=== PATIENT | male | born 1940 | race Caucasian/White ===

== ENCOUNTER 2019-08-10 13:46 | Inpatient (IN) | payer MEDICARE, MEDICAID ==
[~2019-08-10] VITALS: Ht 167.6 cm; Wt 72.6 kg
[2019-08-10] MEDS ORDERED: SODIUM CHLORIDE 0.9% 1,000 ML IV ONE (14:14)
[2019-08-10] MEDS ORDERED: LORAZEPAM 2MG/ML CPJ IV ONE (14:15)
[2019-08-10] MEDS ORDERED: LORAZEPAM 2MG/ML CPJ ONE (14:23)
[2019-08-10 14:51] LABS: BG FRACTION INSPIRED OXYGEN 100; BG PCO2 32.4 mmHg (35.0-45.0); BG PH 7.408 (7.350-7.450); BG PO2 357.4 mmHg (75.0-100.0); BG SAMPLE SITE RIGHT BRACHIAL; BG TOTAL HEMOGLOBIN < 4.5 g/dL (12.0-18.0); BG VENT MODE MASK - NRB
[2019-08-10 15:31] LABS: BASOPHILS % 0.1 % (0.0-2.0); MEAN CORPUSCULAR HEMOGLOBIN 39.3 pg (28.0-32.0); MEAN CORPUSCULAR VOLUME 113.2 fL (80.0-94.0); MEAN PLATELET VOLUME 10.6 fl (7.4-10.4); MONOCYTES % 3.3 % (2.0-8.0); NEUTROPHILS % 83.6 % (40.0-76.0); RED BLOOD CELL COUNT 0.78 mill/uL (4.7-6.1); RED CELL DISTRIBUTION WIDTH 26.5 % (11.6-14.6)
[2019-08-10 15:36] LABS: INR 1.1; PROTHROMBIN TIME 11.4 sec (9.6-11.0)
[2019-08-10 15:37] LABS: HEMATOCRIT. 8.8 % (42.0-52.0); HEMOGLOBIN. 3.1 g/dL (14.0-18.0)
[2019-08-10 15:38] LABS: PLATELET 16 x1000/uL (130-400)
[2019-08-10 15:39] LABS: CHLORIDE 117 mEq/L (98-107)
[2019-08-10 15:43] LABS: ETHANOL BLOOD < 10 mg/dL
[2019-08-10 15:47] LABS: VALPROIC ACID <3.0 ug/mL ug/mL (50-100)
[2019-08-10 15:50] LABS: PARTIAL THROMBOPLASTIN TIME < 20.0 sec (23.4-31.0)
[2019-08-10 15:51] LABS: CLARITY URINE CLEAR (CLEAR); COLOR URINE YELLOW (YELLOW); KETONES URINE NEGATIVE (NEGATIVE); LEUKOCYTE ESTERASE URINE NEGATIVE (NEGATIVE); NITRITE URINE NEGATIVE (NEGATIVE); OCCULT BLOOD URINE NEGATIVE (NEGATIVE); PROTEIN URINE NEGATIVE (NEGATIVE); SPECIFIC GRAVITY URINE 1.012 (1.005-1.030)
[2019-08-10 16:00] LABS: CARBAMAZEPINE < 0.5 ug/mL (4-12); PHENOBARBITAL < 2.1 ug/mL (15.0-40.0)
[2019-08-10 16:10] LABS: PLATELET ESTIMATE MARKEDLY DECREASED
[2019-08-10 16:30] LABS: *BARBITURATES SCREEN URINE NEGATIVE (NEGATIVE); *BENZODIAZEPINES SCREEN URINE NEGATIVE (NEGATIVE); *COCAINE SCREEN URINE NEGATIVE (NEGATIVE)
[2019-08-10] MEDS ORDERED: VANCOMYCIN 1 G PREMIX 200 ML IV SCH (16:30)
[2019-08-10] MEDS ORDERED: PIPERACILLIN/TAZ 3.375G PREMIX 50 ML IV ONE (16:30)
[2019-08-10 16:31] LABS: *AMPHETAMINES SCREEN URINE NEGATIVE (NEGATIVE); CANNABINOID URINE SCREEN NEGATIVE (NEGATIVE); METHADONE URINE SCREEN NEGATIVE (NEGATIVE); PHENCYCLIDINE URINE SCREEN NEGATIVE (NEGATIVE)
[2019-08-10 16:32] LABS: OPIATES URINE SCREEN NEGATIVE (NEGATIVE)
[2019-08-10] MEDS ORDERED: ACETAMINOPHEN 650MG SUPP PR PRN (17:30)
[2019-08-10] MEDS ORDERED: DEXTROSE 50% WATER 50ML SYRINGE IV PRN (17:30)
[2019-08-10] MEDS ORDERED: PANTOPRAZOLE SODIUM 40 MG/VIAL IV SCH (17:30)
[2019-08-10] MEDS ORDERED: ONDANSETRON HCL 4MG/2ML INJ IV PRN (17:30)
[2019-08-10] MEDS ORDERED: LORAZEPAM 2MG/ML CPJ IV PRN (17:30)
[2019-08-10] MEDS ORDERED: IPRATROPIUM/ALBUTEROL 0.5-3(2.5)MG/3ML NEB NEB PRN (17:30)
[2019-08-10] MEDS: INSULIN LISPRO 100 UNITS/ML SUBCUT SCH (18:00)
[2019-08-10] MEDS: BLOOD SUGAR DIAGNOSTIC STRIP TEST SCH (18:00)
[2019-08-10] MEDS ORDERED: NOREPINEPHRINE 4 MG in DEXT 5% WATER 246 ML IV STA (19:52)
[2019-08-10] MEDS ORDERED: PIPERACILLIN/TAZOBACTAM 3.375 G in DEXT 5% WATER 100 ML IV SCH (20:00)
[2019-08-10] MEDS ORDERED: VANCOMYCIN 1250MG in DEXTROSE 5% WATER 250ML IV SCH (20:00)
[2019-08-10] MEDS: LEVETIRACETAM 500MG PREMIX 100 ML IV SCH (21:38)
[2019-08-10 21:55] LABS: MEAN CORPUSCULAR HEMOGLOBIN 34.2 pg (28.0-32.0); MEAN CORPUSCULAR VOLUME 96.3 fL (80.0-94.0); RED BLOOD CELL COUNT 1.63 mill/uL (4.7-6.1); RED CELL DISTRIBUTION WIDTH 20.7 % (11.6-14.6)
[2019-08-10 21:58] LABS: CREATINE KINASE MB FRACTION 1.5 ng/mL (0.5-3.6)
[2019-08-10 22:00] LABS: HEMATOCRIT. 15.7 % (42.0-52.0); HEMOGLOBIN. 5.6 g/dL (14.0-18.0); PLATELET 27 x1000/uL (130-400)
[2019-08-10 22:19] LABS: PLATELET ESTIMATE MARKEDLY DECREASED
[2019-08-10] MEDS: PANTOPRAZOLE 80 MG in SODIUM CHLORIDE 0.9% 100 ML IV SCH (22:30)
[2019-08-10] MEDS ORDERED: CEFEPIME 1,000 MG in DEXTROSE 5% WATER 50 ML IV SCH (23:00)
[2019-08-10 23:47] LABS: BG CARBOXYHEMOGLOBIN 0.2 % (0.5-1.5); BG DEOXYHEMOGLOBIN 1.2 % (0.0-5.0); BG FRACTION INSPIRED OXYGEN 100; BG HCO3 ACT 24.8 mmol/L (22.0-26.0); BG METHEMOGLOBIN 0.5 % (0.0-1.5); BG OXYGEN SATURATION 98.8 % (92.0-98.5); BG OXYHEMOGLOBIN 98.1 % (94.0-97.0); BG PCO2 40.8 mmHg (35.0-45.0); BG PH 7.401 (7.350-7.450); BG PO2 281.6 mmHg (75.0-100.0); BG SAMPLE SITE RIGHT RADIAL; BG TOTAL HEMOGLOBIN 5.8 g/dL (12.0-18.0); BG VENT MODE VAPOTHERM
[2019-08-11] VITALS (58 sets, daily range): BP systolic 89–134; BP diastolic 41–85
[2019-08-11] MEDS: MORPHINE SULFATE 2 MG/ML CPJ (NOT FOR IM USE) IV PRN (00:03)
[2019-08-11] MEDS: BLOOD SUGAR DIAGNOSTIC STRIP TEST SCH ×4 (00:07→18:08)
[2019-08-11] MEDS ORDERED: PHENYLEPHRINE 10 MG in DEXTROSE 5% WATER 250 ML IV PRN (01:00)
[2019-08-11] MEDS: IPRATROPIUM/ALBUTEROL 0.5-3(2.5)MG/3ML NEB NEB SCH ×2 (02:27→20:02)
[2019-08-11] MEDS ORDERED: ETOMIDATE 2MG/ML 10ML VIAL IV ONE (05:30)
[2019-08-11] MEDS ORDERED: SUCCINYLCHOLINE CHLORIDE 200MG/10ML IV ONE (05:30)
[2019-08-11] MEDS ORDERED: PROPOFOL 10MG/ML 100ML 100 ML IV ONE (05:30)
[2019-08-11] MEDS ORDERED: MIDAZOLAM HCL 50 MG in DEXTROSE 5% WATER 40 ML IV ONE (05:45)
[2019-08-11] MEDS: INSULIN LISPRO 100 UNITS/ML SUBCUT SCH ×4 (06:00→18:00)
[2019-08-11] MEDS: DEXTROSE 5% WATER 1,000 ML IV SCH ×2 (06:08→13:30)
[2019-08-11 06:30] LABS: HEMATOCRIT. 28.2 % (42.0-52.0); HEMOGLOBIN. 9.6 g/dL (14.0-18.0); MEAN CORPUSCULAR HEMOGLOBIN 32.1 pg (28.0-32.0); MEAN CORPUSCULAR VOLUME 93.8 fL (80.0-94.0); MEAN PLATELET VOLUME 8.3 fl (7.4-10.4); RED BLOOD CELL COUNT 3.01 mill/uL (4.7-6.1)
[2019-08-11 06:35] LABS: CHLORIDE 116 mEq/L (98-107)
[2019-08-11 06:36] LABS: PLATELET 26 x1000/uL (130-400)
[2019-08-11 06:43] LABS: LDL CHOLESTEROL 56 mg/dL (5-100)
[2019-08-11 06:44] LABS: CREATINE KINASE 200 IU/L (39-308)
[2019-08-11 06:45] LABS: CREATINE KINASE MB FRACTION 2.3 ng/mL (0.5-3.6); HDL CHOLESTEROL 18 mg/dL (40-59); T4 FREE 1.24 ng/dL (0.76-1.46)
[2019-08-11 07:59] LABS: NUCLEATED RED BLOOD CELLS 6 /100 WBC; PLATELET ESTIMATE MARKEDLY DECREASED
[2019-08-11 08:01] LABS: BG BASE EXCESS -0.4 mmol/L (-2.0-2.0); BG CARBOXYHEMOGLOBIN 0.2 % (0.5-1.5); BG DEOXYHEMOGLOBIN 1.8 % (0.0-5.0); BG FRACTION INSPIRED OXYGEN 100; BG HCO3 ACT 22.9 mmol/L (22.0-26.0); BG METHEMOGLOBIN 0.3 % (0.0-1.5); BG OXYGEN SATURATION 98.2 % (92.0-98.5); BG OXYHEMOGLOBIN 97.7 % (94.0-97.0); BG PCO2 32.2 mmHg (35.0-45.0); BG PH 7.469 (7.350-7.450); BG PO2 169.2 mmHg (75.0-100.0); BG SAMPLE SITE RIGHT RADIAL; BG TIDAL VOLUME(mL) 500 mL; BG TOTAL HEMOGLOBIN 9.4 g/dL (12.0-18.0); BG VENT MODE VENT - A/C; BG VENT RATE 20 set
[2019-08-11] MEDS: LEVETIRACETAM 500MG PREMIX 100 ML IV SCH ×2 (09:24→20:57)
[2019-08-11] MEDS: PANTOPRAZOLE 80 MG in SODIUM CHLORIDE 0.9% 100 ML IV SCH ×3 (09:24→20:56)
[2019-08-11] MEDS ORDERED: PANTOPRAZOLE SODIUM 40 MG/VIAL IV ONE (09:31)
[2019-08-11] MEDS: CYANOCOBALAMIN 1000MCG TABLET PO SCH (10:39)
[2019-08-11] MEDS: FOLIC ACID 1MG TABLET PO SCH (10:39)
[2019-08-11] MEDS ORDERED: POTASSIUM CHLORIDE INJ 40 MEQ in DEXT 5% WATER 250 ML IV SCH (14:00)
[2019-08-11] MEDS ORDERED: SODIUM CHLORIDE 0.45% 250 ML IV ONE (14:00)
[2019-08-11] MEDS: VANCOMYCIN 1 G PREMIX 200 ML IV SCH (14:34)
[2019-08-11] MEDS: PROPOFOL 10MG/ML 100ML 100 ML IV PRN (14:51)
[2019-08-11] MEDS: NOREPINEPHRINE 8 MG in DEXT 5% WATER 492 ML IV PRN (15:29)
[2019-08-11 15:52] LABS: HEMATOCRIT. 24.8 % (42.0-52.0); HEMOGLOBIN. 8.6 g/dL (14.0-18.0); MEAN CORPUSCULAR HEMOGLOBIN 32.1 pg (28.0-32.0); MEAN CORPUSCULAR VOLUME 92.1 fL (80.0-94.0); RED BLOOD CELL COUNT 2.69 mill/uL (4.7-6.1); RED CELL DISTRIBUTION WIDTH 16.4 % (11.6-14.6)
[2019-08-11 15:58] LABS: INR 1.1; PARTIAL THROMBOPLASTIN TIME 24.9 sec (23.4-31.0); PROTHROMBIN TIME 11.4 sec (9.6-11.0)
[2019-08-11] MEDS ORDERED: HYDR12.54 MT (16:00)
[2019-08-11] MEDS ORDERED: CHOL40002 MT (16:00)
[2019-08-11] MEDS ORDERED: IBUP-2029 MT (16:00)
[2019-08-11] MEDS ORDERED: OMEP20CA14 MT (16:00)
[2019-08-11] MEDS ORDERED: ALEN70TA3 MT (16:00)
[2019-08-11] MEDS ORDERED: FERR325T23 MT (16:00)
[2019-08-11] MEDS ORDERED: AMLO1CAP5 MT (16:00)
[2019-08-11] MEDS ORDERED: FOLI-43 MT (16:00)
[2019-08-11] MEDS ORDERED: METH2.5T MT (16:00)
[2019-08-11 16:05] LABS: TOTAL IRON BINDING CAPACITY 213 ug/dL (250-450)
[2019-08-11 16:24] LABS: FERRITIN 235 ng/mL (22-322); PLATELET 20 x1000/uL (130-400)
[2019-08-11 16:35] LABS: VITAMIN B12 SERUM > 2000.0 pg/mL (211-911)
[2019-08-11] MEDS: CEFEPIME 1,000 MG in DEXTROSE 5% WATER 50 ML IV SCH (18:25)
[2019-08-11 18:27] LABS: HEMATOCRIT 24.3 % (42.0-52.0); HEMOGLOBIN 8.5 g/dL (14.0-18.0)
[2019-08-11 19:42] LABS: BG BASE EXCESS -0.3 mmol/L (-2.0-2.0); BG CARBOXYHEMOGLOBIN 0.2 % (0.5-1.5); BG DEOXYHEMOGLOBIN 1.7 % (0.0-5.0); BG FRACTION INSPIRED OXYGEN 100; BG METHEMOGLOBIN 0.2 % (0.0-1.5); BG OXYGEN SATURATION 98.3 % (92.0-98.5); BG OXYHEMOGLOBIN 97.9 % (94.0-97.0); BG PH 7.474 (7.350-7.450); BG PO2 150.8 mmHg (75.0-100.0); BG SAMPLE SITE RIGHT RADIAL; BG TIDAL VOLUME(mL) 500 mL; BG TOTAL HEMOGLOBIN 8.8 g/dL (12.0-18.0); BG VENT MODE VENT - A/C; BG VENT RATE 16 set
[2019-08-11 22:01] LABS: PLATELET ESTIMATE MARKEDLY DECREASED
[2019-08-12] VITALS (101 sets, daily range): BP systolic 97–148; BP diastolic 42–106
[2019-08-12] MEDS: BLOOD SUGAR DIAGNOSTIC STRIP TEST SCH ×4 (00:33→17:44)
[2019-08-12 01:14] LABS: HEMOGLOBIN 7.5 g/dL (14.0-18.0)
[2019-08-12] MEDS: ACETAMINOPHEN 325MG TABLET PO PRN (02:25)
[2019-08-12] MEDS: PANTOPRAZOLE 80 MG in SODIUM CHLORIDE 0.9% 100 ML IV SCH ×2 (05:54→15:21)
[2019-08-12] MEDS: CEFEPIME 1,000 MG in DEXTROSE 5% WATER 50 ML IV SCH ×2 (05:55→17:55)
[2019-08-12] MEDS: INSULIN LISPRO 100 UNITS/ML SUBCUT SCH ×4 (06:00→17:44)
[2019-08-12] MEDS: DEXTROSE 5% WATER 1,000 ML IV SCH (06:01)
[2019-08-12] MEDS: PROPOFOL 10MG/ML 100ML 100 ML IV PRN ×2 (06:01→21:22)
[2019-08-12 06:36] LABS: HEMATOCRIT. 21.7 % (42.0-52.0); HEMOGLOBIN. 7.6 g/dL (14.0-18.0); MEAN CORPUSCULAR HEMOGLOBIN 32.3 pg (28.0-32.0); MEAN CORPUSCULAR VOLUME 92.5 fL (80.0-94.0); MEAN PLATELET VOLUME 9.4 fl (7.4-10.4); PLATELET 105 x1000/uL (130-400); RED BLOOD CELL COUNT 2.34 mill/uL (4.7-6.1); RED CELL DISTRIBUTION WIDTH 16.4 % (11.6-14.6)
[2019-08-12 06:39] LABS: CHLORIDE 112 mEq/L (98-107)
[2019-08-12] MEDS: IPRATROPIUM/ALBUTEROL 0.5-3(2.5)MG/3ML NEB NEB SCH ×3 (08:59→20:22)
[2019-08-12] MEDS: LEVETIRACETAM 500MG PREMIX 100 ML IV SCH ×2 (09:06→21:22)
[2019-08-12] MEDS: FOLIC ACID 1MG TABLET PO SCH (09:06)
[2019-08-12] MEDS: CYANOCOBALAMIN 1000MCG TABLET PO SCH (09:12)
[2019-08-12 09:45] LABS: BG BASE EXCESS -0.4 mmol/L (-2.0-2.0); BG CARBOXYHEMOGLOBIN 0.1 % (0.5-1.5); BG DEOXYHEMOGLOBIN 1.7 % (0.0-5.0); BG FRACTION INSPIRED OXYGEN 75; BG HCO3 ACT 21.9 mmol/L (22.0-26.0); BG METHEMOGLOBIN 0.4 % (0.0-1.5); BG OXYGEN SATURATION 98.3 % (92.0-98.5); BG OXYHEMOGLOBIN 97.8 % (94.0-97.0); BG PCO2 27.3 mmHg (35.0-45.0); BG PH 7.522 (7.350-7.450); BG PO2 204.6 mmHg (75.0-100.0); BG SAMPLE SITE RIGHT RADIAL; BG TIDAL VOLUME(mL) 500 mL; BG TOTAL HEMOGLOBIN 8.9 g/dL (12.0-18.0); BG VENT MODE VENT - A/C; BG VENT RATE 16 set
[2019-08-12] MEDS: VANCOMYCIN 1 G PREMIX 200 ML IV SCH (10:41)
[2019-08-12] MEDS: NOREPINEPHRINE 8 MG in DEXT 5% WATER 492 ML IV PRN (10:44)
[2019-08-12] MEDS ORDERED: POTASSIUM CHLORIDE 20MEQ TABLET SR PO NR (10:45)
[2019-08-12 12:06] LABS: PLATELET ESTIMATE SLIGHTLY DECREASED
[2019-08-12] MEDS: MORPHINE SULFATE 2 MG/ML CPJ (NOT FOR IM USE) IV PRN (13:00)
[2019-08-12 19:47] LABS: HEMOGLOBIN 9.9 g/dL (14.0-18.0)
[2019-08-13] VITALS (83 sets, daily range): BP systolic 89–139; BP diastolic 42–89
[2019-08-13] MEDS: IPRATROPIUM/ALBUTEROL 0.5-3(2.5)MG/3ML NEB NEB SCH ×4 (02:01→21:00)
[2019-08-13 02:30] LABS: HEMATOCRIT 26.1 % (42.0-52.0); HEMOGLOBIN 9.1 g/dL (14.0-18.0)
[2019-08-13] MEDS: VANCOMYCIN 1 G PREMIX 200 ML IV SCH (04:08)
[2019-08-13] MEDS: PANTOPRAZOLE 80 MG in SODIUM CHLORIDE 0.9% 100 ML IV SCH ×2 (04:08→16:38)
[2019-08-13] MEDS: PROPOFOL 10MG/ML 100ML 100 ML IV PRN ×2 (04:30→23:28)
[2019-08-13] MEDS: INSULIN LISPRO 100 UNITS/ML SUBCUT SCH ×4 (05:42→18:00)
[2019-08-13] MEDS: BLOOD SUGAR DIAGNOSTIC STRIP TEST SCH ×4 (05:42→18:55)
[2019-08-13] MEDS: CEFEPIME 1,000 MG in DEXTROSE 5% WATER 50 ML IV SCH ×2 (05:42→18:11)
[2019-08-13 06:42] LABS: EOSINOPHILS % 1.5 % (0.0-5.0); HEMATOCRIT. 27.3 % (42.0-52.0); HEMOGLOBIN. 9.4 g/dL (14.0-18.0); LYMPHOCYTES % 7.7 % (20.0-50.0); MEAN CORPUSCULAR HEMOGLOBIN 31.3 pg (28.0-32.0); MEAN CORPUSCULAR VOLUME 91.1 fL (80.0-94.0); MONOCYTES % 6.8 % (2.0-8.0); PLATELET 79 x1000/uL (130-400); RED CELL DISTRIBUTION WIDTH 16.6 % (11.6-14.6)
[2019-08-13 06:53] LABS: CHLORIDE 112 mEq/L (98-107)
[2019-08-13] MEDS ORDERED: PANTOPRAZOLE SODIUM 40 MG/VIAL IV ONE (09:13)
[2019-08-13] MEDS: CYANOCOBALAMIN 1000MCG TABLET PO SCH (09:30)
[2019-08-13] MEDS: FOLIC ACID 1MG TABLET PO SCH (09:30)
[2019-08-13] MEDS: LEVETIRACETAM 500MG PREMIX 100 ML IV SCH ×2 (09:31→23:18)
[2019-08-13] MEDS ORDERED: POTASSIUM CHLORIDE INJ 40 MEQ in DEXT 5% WATER 250 ML IV SCH ×2 (10:00→14:00)
[2019-08-13 10:09] LABS: FOLATE HEMATOCRIT 24.8 % (37.5-51.0)
[2019-08-13 11:43] LABS: BG BASE EXCESS -0.9 mmol/L (-2.0-2.0); BG CARBOXYHEMOGLOBIN 0.3 % (0.5-1.5); BG DEOXYHEMOGLOBIN 2.2 % (0.0-5.0); BG HCO3 ACT 22.1 mmol/L (22.0-26.0); BG OXYGEN SATURATION 97.8 % (92.0-98.5); BG OXYHEMOGLOBIN 97.5 % (94.0-97.0); BG PCO2 30.7 mmHg (35.0-45.0); BG PH 7.476 (7.350-7.450); BG PO2 109.3 mmHg (75.0-100.0); BG SAMPLE SITE RIGHT RADIAL; BG TIDAL VOLUME(mL) 500 mL; BG TOTAL HEMOGLOBIN 9.8 g/dL (12.0-18.0); BG VENT MODE VENT - A/C; BG VENT RATE 16 set
[2019-08-13 12:31] LABS: HEMATOCRIT 27.4 % (42.0-52.0); HEMOGLOBIN 9.4 g/dL (14.0-18.0)
[2019-08-13] MEDS: DEXTROSE 5% WATER 1,000 ML IV SCH (12:51)
[2019-08-13] MEDS: ACETYLCYSTEINE 100MG/ML 10% VIAL 4ML INH SCH (13:16)
[2019-08-13] MEDS ORDERED: MIDAZOLAM HCL 5 MG/5 ML VIAL ONE (15:34)
[2019-08-13] MEDS ORDERED: FENTANYL CITRATE/PF 50MCG/ML 2ML VIAL ONE (15:35)
[2019-08-13] MEDS ORDERED: MIDAZOLAM HCL 2 MG/2 ML VIAL IV PRN (15:54)
[2019-08-13] MEDS ORDERED: FENTANYL CITRATE/PF 50MCG/ML 2ML VIAL IV PRN (15:55)
[2019-08-13] MEDS: VANCOMYCIN 750 MG PREMIX 150 ML IV SCH (18:55)
[2019-08-14] VITALS (91 sets, daily range): BP systolic 90–140; BP diastolic 43–78
[2019-08-14] MEDS: IPRATROPIUM/ALBUTEROL 0.5-3(2.5)MG/3ML NEB NEB SCH ×4 (00:59→20:53)
[2019-08-14] MEDS: ACETYLCYSTEINE 100MG/ML 10% VIAL 4ML INH SCH ×3 (01:00→16:29)
[2019-08-14] MEDS: CEFEPIME 1,000 MG in DEXTROSE 5% WATER 50 ML IV SCH ×2 (04:53→18:00)
[2019-08-14] MEDS: PANTOPRAZOLE 80 MG in SODIUM CHLORIDE 0.9% 100 ML IV SCH (04:53)
[2019-08-14] MEDS: PROPOFOL 10MG/ML 100ML 100 ML IV PRN (04:59)
[2019-08-14] MEDS: INSULIN LISPRO 100 UNITS/ML SUBCUT SCH ×5 (05:41→23:00)
[2019-08-14] MEDS: VANCOMYCIN 750 MG PREMIX 150 ML IV SCH ×2 (05:41→18:30)
[2019-08-14] MEDS: BLOOD SUGAR DIAGNOSTIC STRIP TEST SCH ×5 (05:41→23:00)
[2019-08-14 06:10] LABS: HEMATOCRIT 27.2 % (42.0-52.0); HEMOGLOBIN 9.4 g/dL (14.0-18.0); MEAN CORPUSCULAR HEMOGLOBIN 31.4 pg (28.0-32.0); MEAN CORPUSCULAR VOLUME 91.2 fL (80.0-94.0); PLATELET 92 x1000/uL (130-400); RED BLOOD CELL COUNT 2.99 mill/uL (4.7-6.1)
[2019-08-14] MEDS: DEXTROSE 5% WATER 1,000 ML IV SCH ×2 (08:00→21:56)
[2019-08-14 08:28] LABS: CHLORIDE 112 mEq/L (98-107)
[2019-08-14] MEDS: CYANOCOBALAMIN 1000MCG TABLET PO SCH (09:00)
[2019-08-14] MEDS: FOLIC ACID 1MG TABLET PO SCH (10:00)
[2019-08-14] MEDS: LEVETIRACETAM 500MG PREMIX 100 ML IV SCH ×2 (10:00→20:03)
[2019-08-14 10:17] LABS: BG BASE EXCESS -2.5 mmol/L (-2.0-2.0); BG CARBOXYHEMOGLOBIN 0.3 % (0.5-1.5); BG DEOXYHEMOGLOBIN 2.1 % (0.0-5.0); BG FRACTION INSPIRED OXYGEN 60; BG HCO3 ACT 21.1 mmol/L (22.0-26.0); BG METHEMOGLOBIN 0.1 % (0.0-1.5); BG OXYGEN SATURATION 97.9 % (92.0-98.5); BG OXYHEMOGLOBIN 97.5 % (94.0-97.0); BG PCO2 31.8 mmHg (35.0-45.0); BG PH 7.439 (7.350-7.450); BG PO2 108.5 mmHg (75.0-100.0); BG SAMPLE SITE RIGHT RADIAL; BG TIDAL VOLUME(mL) 500 mL; BG TOTAL HEMOGLOBIN 10.1 g/dL (12.0-18.0); BG VENT MODE VENT - A/C; BG VENT RATE 16 set
[2019-08-14] MEDS ORDERED: PROPOFOL 10MG/ML 100ML 100 ML IV PRN (13:45)
[2019-08-14] MEDS ORDERED: PANTOPRAZOLE SODIUM 40 MG/VIAL IV NR (18:00)
[2019-08-14] MEDS ORDERED: MIDAZOLAM HCL 5 MG/5 ML VIAL IV PRN (22:04)
[2019-08-15] VITALS (37 sets, daily range): BP systolic 99–132; BP diastolic 47–68
[2019-08-15] MEDS: PROPOFOL 10MG/ML 100ML 100 ML IV PRN ×4 (00:14→22:51)
[2019-08-15] MEDS: ACETYLCYSTEINE 100MG/ML 10% VIAL 4ML INH SCH ×3 (02:35→15:48)
[2019-08-15] MEDS: IPRATROPIUM/ALBUTEROL 0.5-3(2.5)MG/3ML NEB NEB SCH ×4 (02:35→20:10)
[2019-08-15] MEDS: INSULIN LISPRO 100 UNITS/ML SUBCUT SCH ×3 (05:09→17:54)
[2019-08-15] MEDS: BLOOD SUGAR DIAGNOSTIC STRIP TEST SCH ×3 (05:09→17:37)
[2019-08-15] MEDS: CEFEPIME 1,000 MG in DEXTROSE 5% WATER 50 ML IV SCH ×2 (05:14→17:47)
[2019-08-15] MEDS: VANCOMYCIN 750 MG PREMIX 150 ML IV SCH (05:14)
[2019-08-15 06:23] LABS: CHLORIDE 115 mEq/L (98-107)
[2019-08-15 06:31] LABS: VANCOMYCIN TROUGH 21.4 ug/mL (5.0-10.0)
[2019-08-15] MEDS: LEVETIRACETAM 500MG PREMIX 100 ML IV SCH ×2 (08:52→21:27)
[2019-08-15] MEDS: CYANOCOBALAMIN 1000MCG TABLET PO SCH (08:53)
[2019-08-15] MEDS: PANTOPRAZOLE SODIUM 40 MG/VIAL IV SCH (08:53)
[2019-08-15] MEDS: FOLIC ACID 1MG TABLET PO SCH (08:53)
[2019-08-15 10:10] LABS: HEMATOCRIT. 27.8 % (42.0-52.0); HEMOGLOBIN. 9.6 g/dL (14.0-18.0); MEAN CORPUSCULAR HEMOGLOBIN 31.7 pg (28.0-32.0); PLATELET 140 x1000/uL (130-400); RED BLOOD CELL COUNT 3.03 mill/uL (4.7-6.1); RED CELL DISTRIBUTION WIDTH 18.6 % (11.6-14.6)
[2019-08-15 10:34] LABS: PLATELET ESTIMATE NORMAL
[2019-08-15 13:06] LABS: FOLATE RBC 1206 ng/mL (>498)
[2019-08-15 17:12] LABS: BG BASE EXCESS -5.9 mmol/L (-2.0-2.0); BG CARBOXYHEMOGLOBIN 0.3 % (0.5-1.5); BG DEOXYHEMOGLOBIN 5.3 % (0.0-5.0); BG FRACTION INSPIRED OXYGEN 45; BG HCO3 ACT 16.3 mmol/L (22.0-26.0); BG METHEMOGLOBIN 0.1 % (0.0-1.5); BG OXYGEN SATURATION 94.7 % (92.0-98.5); BG OXYHEMOGLOBIN 94.3 % (94.0-97.0); BG PCO2 22.8 mmHg (35.0-45.0); BG PH 7.471 (7.350-7.450); BG PO2 72.1 mmHg (75.0-100.0); BG PRESSURE SUPPORT 10; BG SAMPLE SITE LEFT RADIAL; BG TOTAL HEMOGLOBIN 10.4 g/dL (12.0-18.0); BG VENT MODE VENT - CPAP
[2019-08-15] MEDS: DEXTROSE 5% WATER 1,000 ML IV SCH (17:32)
[2019-08-15] MEDS ORDERED: VANCOMYCIN 1 G PREMIX 200 ML IV SCH (22:00)
[2019-08-16] VITALS (61 sets, daily range): BP systolic 97–146; BP diastolic 43–72
[2019-08-16] MEDS: ACETYLCYSTEINE 100MG/ML 10% VIAL 4ML INH SCH ×3 (02:08→13:59)
[2019-08-16] MEDS: PROPOFOL 10MG/ML 100ML 100 ML IV PRN ×3 (05:33→19:27)
[2019-08-16 06:04] LABS: PROTHROMBIN TIME 11.2 sec (9.6-11.0)
[2019-08-16 06:11] LABS: CHLORIDE 113 mEq/L (98-107)
[2019-08-16 06:20] LABS: HEMATOCRIT. 29.2 % (42.0-52.0); HEMOGLOBIN. 9.9 g/dL (14.0-18.0); MEAN CORPUSCULAR HEMOGLOBIN 30.9 pg (28.0-32.0); MEAN CORPUSCULAR VOLUME 91.4 fL (80.0-94.0); MEAN PLATELET VOLUME 8.8 fl (7.4-10.4); PLATELET 171 x1000/uL (130-400); RED BLOOD CELL COUNT 3.19 mill/uL (4.7-6.1); RED CELL DISTRIBUTION WIDTH 17.4 % (11.6-14.6)
[2019-08-16] MEDS: IPRATROPIUM/ALBUTEROL 0.5-3(2.5)MG/3ML NEB NEB SCH ×3 (08:10→20:36)
[2019-08-16] MEDS: LEVETIRACETAM 500MG PREMIX 100 ML IV SCH ×2 (08:55→21:18)
[2019-08-16] MEDS: PANTOPRAZOLE SODIUM 40 MG/VIAL IV SCH (08:56)
[2019-08-16 09:55] LABS: BG BASE EXCESS -1.7 mmol/L (-2.0-2.0); BG CARBOXYHEMOGLOBIN 0.2 % (0.5-1.5); BG DEOXYHEMOGLOBIN 7.4 % (0.0-5.0); BG FRACTION INSPIRED OXYGEN 40; BG HCO3 ACT 22.3 mmol/L (22.0-26.0); BG METHEMOGLOBIN 0.3 % (0.0-1.5); BG OXYGEN SATURATION 92.6 % (92.0-98.5); BG OXYHEMOGLOBIN 92.1 % (94.0-97.0); BG PCO2 34.9 mmHg (35.0-45.0); BG PH 7.424 (7.350-7.450); BG PO2 63.8 mmHg (75.0-100.0); BG PRESSURE SUPPORT 8; BG SAMPLE SITE RIGHT RADIAL; BG VENT MODE VENT - CPAP
[2019-08-16 11:25] LABS: PLATELET ESTIMATE NORMAL
[2019-08-16] MEDS: INSULIN LISPRO 100 UNITS/ML SUBCUT SCH ×3 (12:00→18:00)
[2019-08-16] MEDS: BLOOD SUGAR DIAGNOSTIC STRIP TEST SCH ×3 (12:00→18:34)
[2019-08-16] MEDS: DEXTROSE 5% WATER 1,000 ML IV SCH ×2 (14:09→18:47)
[2019-08-16] MEDS: METHYLPREDNISOLONE SOD SUCC 40 MG/ML VIAL IV SCH ×2 (16:17→21:19)
[2019-08-16] MEDS: CEFEPIME 1,000 MG in DEXTROSE 5% WATER 50 ML IV SCH (17:24)
[2019-08-16] MEDS: VANCOMYCIN 1 G PREMIX 200 ML IV SCH (18:30)
[2019-08-17] VITALS (69 sets, daily range): BP systolic 89–123; BP diastolic 37–70
[2019-08-17] MEDS: PROPOFOL 10MG/ML 100ML 100 ML IV PRN ×4 (01:25→21:06)
[2019-08-17] MEDS: ACETYLCYSTEINE 100MG/ML 10% VIAL 4ML INH SCH ×3 (02:22→14:31)
[2019-08-17] MEDS: IPRATROPIUM/ALBUTEROL 0.5-3(2.5)MG/3ML NEB NEB SCH ×4 (02:22→20:29)
[2019-08-17 05:39] LABS: CHLORIDE 113 mEq/L (98-107)
[2019-08-17] MEDS: BLOOD SUGAR DIAGNOSTIC STRIP TEST SCH ×5 (06:00→23:56)
[2019-08-17] MEDS: CEFEPIME 1,000 MG in DEXTROSE 5% WATER 50 ML IV SCH ×2 (06:07→17:28)
[2019-08-17] MEDS: INSULIN LISPRO 100 UNITS/ML SUBCUT SCH ×5 (06:08→23:58)
[2019-08-17] MEDS: METHYLPREDNISOLONE SOD SUCC 40 MG/ML VIAL IV SCH ×3 (06:08→21:04)
[2019-08-17 06:44] LABS: HEMATOCRIT. 29.7 % (42.0-52.0); HEMOGLOBIN. 10.1 g/dL (14.0-18.0); MEAN PLATELET VOLUME 9.3 fl (7.4-10.4); PLATELET 231 x1000/uL (130-400); RED BLOOD CELL COUNT 3.26 mill/uL (4.7-6.1)
[2019-08-17] MEDS: LEVETIRACETAM 500MG PREMIX 100 ML IV SCH ×2 (08:45→21:04)
[2019-08-17] MEDS: PANTOPRAZOLE SODIUM 40 MG/VIAL IV SCH (08:45)
[2019-08-17 09:53] LABS: BG BASE EXCESS -3.4 mmol/L (-2.0-2.0); BG CARBOXYHEMOGLOBIN 0.3 % (0.5-1.5); BG DEOXYHEMOGLOBIN 4.4 % (0.0-5.0); BG FRACTION INSPIRED OXYGEN 50; BG HCO3 ACT 20.9 mmol/L (22.0-26.0); BG METHEMOGLOBIN 0.2 % (0.0-1.5); BG OXYGEN SATURATION 95.6 % (92.0-98.5); BG OXYHEMOGLOBIN 95.1 % (94.0-97.0); BG PH 7.394 (7.350-7.450); BG PO2 80.9 mmHg (75.0-100.0); BG SAMPLE SITE RIGHT RADIAL; BG TIDAL VOLUME(mL) 500 mL; BG TOTAL HEMOGLOBIN 10.9 g/dL (12.0-18.0); BG VENT MODE VENT - A/C; BG VENT RATE 16 set
[2019-08-17 11:35] LABS: PLATELET ESTIMATE NORMAL
[2019-08-17] MEDS: FUROSEMIDE 40MG/4ML VIAL IVP SCH (11:48)
[2019-08-17] MEDS: VANCOMYCIN 1 G PREMIX 200 ML IV SCH (11:48)
[2019-08-18] VITALS (44 sets, daily range): BP systolic 93–167; BP diastolic 44–93
[2019-08-18] MEDS: IPRATROPIUM/ALBUTEROL 0.5-3(2.5)MG/3ML NEB NEB SCH ×4 (02:15→20:30)
[2019-08-18] MEDS: ACETYLCYSTEINE 100MG/ML 10% VIAL 4ML INH SCH ×2 (02:16→08:32)
[2019-08-18] MEDS: VANCOMYCIN 1 G PREMIX 200 ML IV SCH (04:32)
[2019-08-18] MEDS: DEXTROSE 5% WATER 1,000 ML IV SCH (04:33)
[2019-08-18] MEDS: INSULIN LISPRO 100 UNITS/ML SUBCUT SCH ×3 (05:36→17:23)
[2019-08-18] MEDS: METHYLPREDNISOLONE SOD SUCC 40 MG/ML VIAL IV SCH ×3 (05:36→22:12)
[2019-08-18] MEDS: CEFEPIME 1,000 MG in DEXTROSE 5% WATER 50 ML IV SCH ×2 (05:37→17:14)
[2019-08-18] MEDS: BLOOD SUGAR DIAGNOSTIC STRIP TEST SCH ×3 (05:37→17:21)
[2019-08-18 05:41] LABS: CHLORIDE 109 mEq/L (98-107)
[2019-08-18 06:34] LABS: HEMATOCRIT. 32.3 % (42.0-52.0); HEMOGLOBIN. 10.9 g/dL (14.0-18.0); MEAN CORPUSCULAR HEMOGLOBIN 30.7 pg (28.0-32.0); MEAN CORPUSCULAR VOLUME 90.8 fL (80.0-94.0); MEAN PLATELET VOLUME 9.2 fl (7.4-10.4); PLATELET 331 x1000/uL (130-400); RED BLOOD CELL COUNT 3.55 mill/uL (4.7-6.1); RED CELL DISTRIBUTION WIDTH 16.5 % (11.6-14.6)
[2019-08-18] MEDS ORDERED: PROPOFOL 10MG/ML 100ML 100 ML IV PRN (06:45)
[2019-08-18 07:35] LABS: PLATELET ESTIMATE NORMAL
[2019-08-18 08:11] LABS: BG BASE EXCESS -4.4 mmol/L (-2.0-2.0); BG CARBOXYHEMOGLOBIN 0.1 % (0.5-1.5); BG HCO3 ACT 21.2 mmol/L (22.0-26.0); BG METHEMOGLOBIN 0.3 % (0.0-1.5); BG OXYHEMOGLOBIN 91.6 % (94.0-97.0); BG PCO2 40.9 mmHg (35.0-45.0); BG PH 7.332 (7.350-7.450); BG PO2 67.9 mmHg (75.0-100.0); BG SAMPLE SITE RIGHT BRACHIAL; BG TIDAL VOLUME(mL) 500 mL; BG TOTAL HEMOGLOBIN 12.1 g/dL (12.0-18.0); BG VENT MODE VENT - A/C; BG VENT RATE 16 set
[2019-08-18] MEDS: PANTOPRAZOLE SODIUM 40 MG/VIAL IV SCH (08:28)
[2019-08-18] MEDS: LEVETIRACETAM 500MG PREMIX 100 ML IV SCH ×2 (08:29→21:00)
[2019-08-18] MEDS: FUROSEMIDE 40MG/4ML VIAL IVP SCH (08:29)
[2019-08-18] MEDS ORDERED: MORPHINE SULFATE 2 MG/ML CPJ (NOT FOR IM USE) IV NR (11:03)
[2019-08-18 11:37] LABS: BG BASE EXCESS -2.7 mmol/L (-2.0-2.0); BG CARBOXYHEMOGLOBIN 0.3 % (0.5-1.5); BG DEOXYHEMOGLOBIN 4.5 % (0.0-5.0); BG FRACTION INSPIRED OXYGEN 50; BG HCO3 ACT 20.9 mmol/L (22.0-26.0); BG METHEMOGLOBIN 0.4 % (0.0-1.5); BG OXYGEN SATURATION 95.5 % (92.0-98.5); BG OXYHEMOGLOBIN 94.8 % (94.0-97.0); BG PCO2 32.4 mmHg (35.0-45.0); BG PH 7.427 (7.350-7.450); BG PO2 75.7 mmHg (75.0-100.0); BG PRESSURE SUPPORT 10; BG SAMPLE SITE RIGHT RADIAL; BG TOTAL HEMOGLOBIN 11.7 g/dL (12.0-18.0); BG VENT MODE VENT - CPAP
[2019-08-18] MEDS: MORPHINE SULFATE 2 MG/ML CPJ (NOT FOR IM USE) IV PRN ×2 (11:42→22:01)
[2019-08-18] MEDS ORDERED: FUROSEMIDE 40MG/4ML VIAL IVP NR (22:30)
[2019-08-18] MEDS: LORAZEPAM 2MG/ML CPJ IV PRN (22:47)
[2019-08-19] VITALS (30 sets, daily range): BP systolic 100–155; BP diastolic 46–97
[2019-08-19] MEDS: MORPHINE SULFATE 2 MG/ML CPJ (NOT FOR IM USE) IV PRN ×4 (02:03→16:50)
[2019-08-19] MEDS: DEXTROSE 5% WATER 1,000 ML IV SCH ×2 (02:22→21:30)
[2019-08-19] MEDS ORDERED: VANCOMYCIN 1 G PREMIX 200 ML IV PRN (06:00)
[2019-08-19] MEDS ORDERED: VANCOMYCIN 1 G PREMIX 200 ML IV SCH (06:00)
[2019-08-19] MEDS: CEFEPIME 1,000 MG in DEXTROSE 5% WATER 50 ML IV SCH ×2 (06:22→17:08)
[2019-08-19] MEDS: METHYLPREDNISOLONE SOD SUCC 40 MG/ML VIAL IV SCH ×3 (06:32→22:00)
[2019-08-19] MEDS: BLOOD SUGAR DIAGNOSTIC STRIP TEST SCH ×4 (07:00→17:34)
[2019-08-19 07:22] LABS: HEMATOCRIT. 31.2 % (42.0-52.0); HEMOGLOBIN. 10.5 g/dL (14.0-18.0); MEAN CORPUSCULAR HEMOGLOBIN 30.6 pg (28.0-32.0); MEAN PLATELET VOLUME 8.5 fl (7.4-10.4); PLATELET 374 x1000/uL (130-400); RED BLOOD CELL COUNT 3.43 mill/uL (4.7-6.1); RED CELL DISTRIBUTION WIDTH 16.6 % (11.6-14.6)
[2019-08-19] MEDS: IPRATROPIUM/ALBUTEROL 0.5-3(2.5)MG/3ML NEB NEB SCH ×3 (08:13→20:59)
[2019-08-19] MEDS: FUROSEMIDE 40MG/4ML VIAL IVP SCH (08:36)
[2019-08-19] MEDS: PANTOPRAZOLE SODIUM 40 MG/VIAL IV SCH (08:36)
[2019-08-19] MEDS: INSULIN LISPRO 100 UNITS/ML SUBCUT SCH ×4 (08:37→18:15)
[2019-08-19] MEDS: LORAZEPAM 2MG/ML CPJ IV PRN (08:49)
[2019-08-19] MEDS: LEVETIRACETAM 500MG PREMIX 100 ML IV SCH ×2 (08:55→21:00)
[2019-08-19 09:06] LABS: BG BASE EXCESS 0.8 mmol/L (-2.0-2.0); BG CARBOXYHEMOGLOBIN 0.3 % (0.5-1.5); BG DEOXYHEMOGLOBIN 4.7 % (0.0-5.0); BG FRACTION INSPIRED OXYGEN 50; BG HCO3 ACT 24.2 mmol/L (22.0-26.0); BG METHEMOGLOBIN 0.3 % (0.0-1.5); BG OXYGEN SATURATION 95.3 % (92.0-98.5); BG OXYHEMOGLOBIN 94.7 % (94.0-97.0); BG PCO2 34.5 mmHg (35.0-45.0); BG PH 7.464 (7.350-7.450); BG PO2 70.1 mmHg (75.0-100.0); BG PRESSURE SUPPORT 10; BG SAMPLE SITE RIGHT RADIAL; BG VENT MODE VENT - CPAP
[2019-08-19 14:23] LABS: ATYPICAL LYMPHOCYTES 2
[2019-08-19 14:24] LABS: PLATELET ESTIMATE NORMAL
[2019-08-19] MEDS ORDERED: VANCOMYCIN 750 MG PREMIX 150 ML IV SCH (23:30)
[2019-08-20] VITALS (64 sets, daily range): BP systolic 111–176; BP diastolic 30–108
[2019-08-20] MEDS: BLOOD SUGAR DIAGNOSTIC STRIP TEST SCH ×4 (00:49→18:14)
[2019-08-20] MEDS: INSULIN LISPRO 100 UNITS/ML SUBCUT SCH ×4 (00:51→18:17)
[2019-08-20] MEDS: LORAZEPAM 2MG/ML CPJ IV PRN (01:11)
[2019-08-20] MEDS: IPRATROPIUM/ALBUTEROL 0.5-3(2.5)MG/3ML NEB NEB SCH ×3 (02:58→20:16)
[2019-08-20] MEDS: CEFEPIME 1,000 MG in DEXTROSE 5% WATER 50 ML IV SCH ×2 (06:00→18:13)
[2019-08-20 06:24] LABS: HEMATOCRIT. 31.2 % (42.0-52.0); HEMOGLOBIN. 10.3 g/dL (14.0-18.0); MEAN CORPUSCULAR HEMOGLOBIN 29.8 pg (28.0-32.0); MEAN CORPUSCULAR VOLUME 90.2 fL (80.0-94.0); MEAN PLATELET VOLUME 8.6 fl (7.4-10.4); PLATELET 392 x1000/uL (130-400); RED BLOOD CELL COUNT 3.45 mill/uL (4.7-6.1); RED CELL DISTRIBUTION WIDTH 16.4 % (11.6-14.6)
[2019-08-20] MEDS: METHYLPREDNISOLONE SOD SUCC 40 MG/ML VIAL IV SCH ×3 (06:29→22:09)
[2019-08-20 07:28] LABS: CHLORIDE 104 mEq/L (98-107)
[2019-08-20] MEDS: FUROSEMIDE 40MG/4ML VIAL IVP SCH (08:54)
[2019-08-20] MEDS: PANTOPRAZOLE SODIUM 40 MG/VIAL IV SCH (08:54)
[2019-08-20] MEDS: LEVETIRACETAM 500MG PREMIX 100 ML IV SCH ×2 (08:54→21:04)
[2019-08-20] MEDS: MORPHINE SULFATE 2 MG/ML CPJ (NOT FOR IM USE) IV PRN (12:40)
[2019-08-20 16:54] LABS: PLATELET ESTIMATE NORMAL
[2019-08-20] MEDS: DEXTROSE 5% WATER 1,000 ML IV SCH ×2 (18:13→21:07)
[2019-08-20] MEDS: QUETIAPINE FUMARATE 25MG TABLET PO SCH (21:15)
[2019-08-21] VITALS (40 sets, daily range): BP systolic 122–169; BP diastolic 37–95
[2019-08-21] MEDS: BLOOD SUGAR DIAGNOSTIC STRIP TEST SCH ×4 (00:23→18:13)
[2019-08-21] MEDS: IPRATROPIUM/ALBUTEROL 0.5-3(2.5)MG/3ML NEB NEB SCH ×4 (02:23→20:55)
[2019-08-21] MEDS: CEFEPIME 1,000 MG in DEXTROSE 5% WATER 50 ML IV SCH ×2 (06:22→18:17)
[2019-08-21] MEDS: METHYLPREDNISOLONE SOD SUCC 40 MG/ML VIAL IV SCH (06:39)
[2019-08-21] MEDS: INSULIN LISPRO 100 UNITS/ML SUBCUT SCH ×4 (07:55→18:00)
[2019-08-21 08:12] LABS: HEMATOCRIT. 32.3 % (42.0-52.0); MEAN CORPUSCULAR HEMOGLOBIN 30.6 pg (28.0-32.0); MEAN CORPUSCULAR VOLUME 89.8 fL (80.0-94.0); MEAN PLATELET VOLUME 8.5 fl (7.4-10.4); PLATELET 515 x1000/uL (130-400)
[2019-08-21] MEDS: LEVETIRACETAM 500MG PREMIX 100 ML IV SCH ×2 (08:12→21:00)
[2019-08-21] MEDS: QUETIAPINE FUMARATE 25MG TABLET PO SCH ×2 (08:13→21:00)
[2019-08-21] MEDS: FUROSEMIDE 40MG/4ML VIAL IVP SCH (08:13)
[2019-08-21] MEDS: PANTOPRAZOLE SODIUM 40 MG/VIAL IV SCH (08:14)
[2019-08-21 08:23] LABS: CHLORIDE 102 mEq/L (98-107)
[2019-08-21] MEDS ORDERED: VANCOMYCIN 1 G PREMIX 200 ML IV SCH (12:00)
[2019-08-21 12:17] LABS: BG CARBOXYHEMOGLOBIN 0.3 % (0.5-1.5); BG DEOXYHEMOGLOBIN 6.7 % (0.0-5.0); BG FRACTION INSPIRED OXYGEN 40; BG HCO3 ACT 30.4 mmol/L (22.0-26.0); BG METHEMOGLOBIN 0.2 % (0.0-1.5); BG OXYGEN SATURATION 93.3 % (92.0-98.5); BG OXYHEMOGLOBIN 92.8 % (94.0-97.0); BG PCO2 38.8 mmHg (35.0-45.0); BG PH 7.512 (7.350-7.450); BG PO2 60.9 mmHg (75.0-100.0); BG PRESSURE SUPPORT 10; BG SAMPLE SITE RIGHT RADIAL; BG TOTAL HEMOGLOBIN 11.8 g/dL (12.0-18.0); BG VENT MODE VENT - CPAP
[2019-08-21 13:35] LABS: PLATELET ESTIMATE INCREASED
[2019-08-21 14:43] LABS: CLARITY URINE CLEAR (CLEAR); COLOR URINE YELLOW (YELLOW); KETONES URINE NEGATIVE (NEGATIVE); LEUKOCYTE ESTERASE URINE NEGATIVE (NEGATIVE); NITRITE URINE NEGATIVE (NEGATIVE); OCCULT BLOOD URINE 2+ (NEGATIVE); PH URINE 5.5 (4.5-8.0); PROTEIN URINE TRACE (NEGATIVE); SPECIFIC GRAVITY URINE 1.011 (1.005-1.030); UROBILINOGEN URINE 0.2 E.U./dL (0.2-1.0)
[2019-08-22] VITALS (33 sets, daily range): BP systolic 48–152; BP diastolic 24–83
[2019-08-22] MEDS: IPRATROPIUM/ALBUTEROL 0.5-3(2.5)MG/3ML NEB NEB SCH ×4 (01:06→22:11)
[2019-08-22] MEDS: CEFEPIME 1,000 MG in DEXTROSE 5% WATER 50 ML IV SCH ×2 (05:49→17:59)
[2019-08-22] MEDS: INSULIN LISPRO 100 UNITS/ML SUBCUT SCH ×5 (06:00→23:58)
[2019-08-22] MEDS: BLOOD SUGAR DIAGNOSTIC STRIP TEST SCH ×5 (06:00→23:50)
[2019-08-22 06:13] LABS: HEMATOCRIT. 32.9 % (42.0-52.0); HEMOGLOBIN. 10.9 g/dL (14.0-18.0); MEAN CORPUSCULAR VOLUME 90.3 fL (80.0-94.0); MEAN PLATELET VOLUME 8.2 fl (7.4-10.4); RED BLOOD CELL COUNT 3.64 mill/uL (4.7-6.1); RED CELL DISTRIBUTION WIDTH 16.1 % (11.6-14.6)
[2019-08-22 06:52] LABS: CHLORIDE 103 mEq/L (98-107)
[2019-08-22] MEDS: PANTOPRAZOLE SODIUM 40 MG/VIAL IV SCH (08:35)
[2019-08-22] MEDS: QUETIAPINE FUMARATE 25MG TABLET PO SCH (08:36)
[2019-08-22] MEDS: DEXTROSE 5% WATER 1,000 ML IV SCH (08:36)
[2019-08-22] MEDS: FUROSEMIDE 40MG/4ML VIAL IVP SCH (08:36)
[2019-08-22] MEDS: METHYLPREDNISOLONE SOD SUCC 40 MG/ML VIAL IV SCH (08:36)
[2019-08-22] MEDS: LEVETIRACETAM 500MG PREMIX 100 ML IV SCH ×2 (08:37→20:59)
[2019-08-22 10:19] LABS: PLATELET ESTIMATE INCREASED
[2019-08-22 10:20] LABS: PLATELET 487 x1000/uL (130-400)
[2019-08-22] MEDS ORDERED: NA PHOS,M-B/NA PHOS,DI-BA ENEMA 118ML PR NR (19:00)
[2019-08-22] MEDS: LORAZEPAM 2MG/ML CPJ IV PRN (20:59)
[2019-08-23] VITALS (13 sets, daily range): BP systolic 91–134; BP diastolic 40–73
[2019-08-23] MEDS: IPRATROPIUM/ALBUTEROL 0.5-3(2.5)MG/3ML NEB NEB SCH ×4 (02:57→21:24)
[2019-08-23] MEDS: DEXTROSE 5% WATER 1,000 ML IV SCH (03:34)
[2019-08-23] MEDS: CEFEPIME 1,000 MG in DEXTROSE 5% WATER 50 ML IV SCH ×2 (04:40→18:44)
[2019-08-23] MEDS: INSULIN LISPRO 100 UNITS/ML SUBCUT SCH ×3 (06:00→18:45)
[2019-08-23] MEDS: BLOOD SUGAR DIAGNOSTIC STRIP TEST SCH ×3 (06:00→18:00)
[2019-08-23 06:09] LABS: CHLORIDE 102 mEq/L (98-107)
[2019-08-23 06:21] LABS: HEMATOCRIT. 34.1 % (42.0-52.0); HEMOGLOBIN. 11.2 g/dL (14.0-18.0); MEAN CORPUSCULAR HEMOGLOBIN 29.6 pg (28.0-32.0); MEAN CORPUSCULAR VOLUME 89.8 fL (80.0-94.0); MEAN PLATELET VOLUME 8.3 fl (7.4-10.4); PLATELET 437 x1000/uL (130-400); RED CELL DISTRIBUTION WIDTH 16.3 % (11.6-14.6)
[2019-08-23 07:54] LABS: PLATELET ESTIMATE SLIGHTLY INCREASED
[2019-08-23] MEDS: LEVETIRACETAM 500MG PREMIX 100 ML IV SCH ×2 (08:51→20:08)
[2019-08-23] MEDS: PANTOPRAZOLE SODIUM 40 MG/VIAL IV SCH (08:52)
[2019-08-23] MEDS: FUROSEMIDE 40MG/4ML VIAL IVP SCH (08:52)
[2019-08-23] MEDS: METHYLPREDNISOLONE SOD SUCC 40 MG/ML VIAL IV SCH (08:52)
[2019-08-23] MEDS ORDERED: QUETIAPINE FUMARATE 25MG TABLET PO SCH (09:00)
[2019-08-23] MEDS ORDERED: VANCOMYCIN 750 MG PREMIX 150 ML IV SCH (11:00)
[2019-08-23] MEDS: LORAZEPAM 2MG/ML CPJ IV PRN (20:09)
[2019-08-24] VITALS (11 sets, daily range): BP systolic 97–153; BP diastolic 36–106
[2019-08-24] MEDS: BLOOD SUGAR DIAGNOSTIC STRIP TEST SCH ×5 (01:22→23:55)
[2019-08-24] MEDS: IPRATROPIUM/ALBUTEROL 0.5-3(2.5)MG/3ML NEB NEB SCH ×3 (02:09→12:55)
[2019-08-24] MEDS: CEFEPIME 1,000 MG in DEXTROSE 5% WATER 50 ML IV SCH (05:06)
[2019-08-24] MEDS: INSULIN LISPRO 100 UNITS/ML SUBCUT SCH ×5 (05:26→23:54)
[2019-08-24 06:37] LABS: CHLORIDE 102 mEq/L (98-107)
[2019-08-24 06:44] LABS: HEMATOCRIT. 33.5 % (42.0-52.0); HEMOGLOBIN. 11.4 g/dL (14.0-18.0); MEAN CORPUSCULAR HEMOGLOBIN 30.3 pg (28.0-32.0); MEAN CORPUSCULAR VOLUME 89.3 fL (80.0-94.0); MEAN PLATELET VOLUME 8.5 fl (7.4-10.4); PLATELET 505 x1000/uL (130-400); RED BLOOD CELL COUNT 3.75 mill/uL (4.7-6.1); RED CELL DISTRIBUTION WIDTH 16.1 % (11.6-14.6)
[2019-08-24] MEDS: METHYLPREDNISOLONE SOD SUCC 40 MG/ML VIAL IV SCH (08:19)
[2019-08-24] MEDS: PANTOPRAZOLE SODIUM 40 MG/VIAL IV SCH (08:20)
[2019-08-24] MEDS: LEVETIRACETAM 500MG PREMIX 100 ML IV SCH ×2 (08:20→21:09)
[2019-08-24] MEDS ORDERED: MORPHINE SULFATE 2 MG/ML CPJ (NOT FOR IM USE) IV PRN (08:45)
[2019-08-24] MEDS ORDERED: POTASSIUM CHLORIDE 20MEQ TABLET SR PO NR (08:45)
[2019-08-24 09:43] LABS: PLATELET ESTIMATE INCREASED
[2019-08-24] MEDS ORDERED: POTASSIUM CHLORIDE INJ 40 MEQ in DEXT 5% WATER 250 ML IV NR (11:00)
[2019-08-24] MEDS ORDERED: LEVOFLOXACIN 750MG PREMIX 150 ML IV SCH (17:00)
[2019-08-24 17:02] LABS: BG BASE EXCESS 5.9 mmol/L (-2.0-2.0); BG DEOXYHEMOGLOBIN 8.5 % (0.0-5.0); BG HCO3 ACT 28.7 mmol/L (22.0-26.0); BG METHEMOGLOBIN 0.1 % (0.0-1.5); BG OXYGEN SATURATION 91.5 % (92.0-98.5); BG OXYHEMOGLOBIN 91.4 % (94.0-97.0); BG PCO2 35.3 mmHg (35.0-45.0); BG PH 7.528 (7.350-7.450); BG PO2 58.6 mmHg (75.0-100.0); BG SAMPLE SITE RIGHT BRACHIAL; BG VENT MODE ROOM AIR
[2019-08-24] MEDS: LORAZEPAM 2MG/ML CPJ IV PRN (20:17)
[2019-08-25] VITALS (11 sets, daily range): BP systolic 102–153; BP diastolic 48–78
[2019-08-25] MEDS: IPRATROPIUM/ALBUTEROL 0.5-3(2.5)MG/3ML NEB NEB SCH ×4 (01:49→19:58)
[2019-08-25] MEDS: LORAZEPAM 2MG/ML CPJ IV PRN ×2 (03:26→10:38)
[2019-08-25] MEDS: BLOOD SUGAR DIAGNOSTIC STRIP TEST SCH ×3 (05:46→18:46)
[2019-08-25] MEDS: INSULIN LISPRO 100 UNITS/ML SUBCUT SCH ×3 (05:46→18:00)
[2019-08-25 06:23] LABS: HEMATOCRIT. 32.9 % (42.0-52.0); HEMOGLOBIN. 10.9 g/dL (14.0-18.0); MEAN CORPUSCULAR HEMOGLOBIN 29.5 pg (28.0-32.0); MEAN CORPUSCULAR VOLUME 89.1 fL (80.0-94.0); MEAN PLATELET VOLUME 8.3 fl (7.4-10.4); PLATELET 409 x1000/uL (130-400); RED BLOOD CELL COUNT 3.69 mill/uL (4.7-6.1); RED CELL DISTRIBUTION WIDTH 15.7 % (11.6-14.6)
[2019-08-25 07:41] LABS: PLATELET ESTIMATE SLIGHTLY INCREASED
[2019-08-25] MEDS: PANTOPRAZOLE SODIUM 40 MG/VIAL IV SCH (08:41)
[2019-08-25] MEDS: LEVETIRACETAM 500MG PREMIX 100 ML IV SCH (08:42)
[2019-08-25] MEDS ORDERED: POTASSIUM CHLORIDE INJ 40 MEQ in DEXT 5% WATER 250 ML IV SCH (09:00)
[2019-08-26] MEDS ORDERED: LEVOFLOXACIN 750MG PREMIX 150 ML IV SCH (17:00)
== END 2019-08-25 21:00 | DRG 870 ==
LOC: ER 13:46 → MICUSO 16:55 → EDBEDREQ 17:05 → 5EST 08-11 09:42
PROVIDERS: ADMIT Internal Medicine; ATTEND Internal Medicine
PROC: 30233N1 Transfusion of Nonautologous Red Blood Cells into Peripheral Vein, Percutaneous Approach (ICD-10-PCS; 2019-08-10)
PROC: 5A1955Z Respiratory Ventilation, Greater than 96 Consecutive Hours (ICD-10-PCS; 2019-08-11)
PROC: 0BH17EZ Insertion of Endotracheal Airway into Trachea, Via Natural or Artificial Opening (ICD-10-PCS; 2019-08-11)
PROC: 30233R1 Transfusion of Nonautologous Platelets into Peripheral Vein, Percutaneous Approach (ICD-10-PCS; 2019-08-11)
PROC: 0DB68ZX Excision of Stomach, Via Natural or Artificial Opening Endoscopic, Diagnostic (ICD-10-PCS; principal; 2019-08-13)
PROC: 07DQ3ZX Extraction of Sternum Bone Marrow, Percutaneous Approach, Diagnostic (ICD-10-PCS; 2019-08-16)
DX: A41.9 Sepsis, unspecified organism (principal); J96.01 Acute respiratory failure with hypoxia; J69.0 Pneumonitis due to inhalation of food and vomit; G93.41 Metabolic encephalopathy; K29.01 Acute gastritis with bleeding; E87.0 Hyperosmolality and hypernatremia; E46 Unspecified protein-calorie malnutrition; J90 Pleural effusion, not elsewhere classified; J84.9 Interstitial pulmonary disease, unspecified; E87.1 Hypo-osmolality and hyponatremia; E86.0 Dehydration; R73.9 Hyperglycemia, unspecified; E87.6 Hypokalemia; D50.0 Iron deficiency anemia secondary to blood loss (chronic); D69.6 Thrombocytopenia, unspecified; N28.1 Cyst of kidney, acquired; I10 Essential (primary) hypertension; D53.9 Nutritional anemia, unspecified; I44.1 Atrioventricular block, second degree; D51.0 Vitamin B12 deficiency anemia due to intrinsic factor deficiency; R00.1 Bradycardia, unspecified; R19.7 Diarrhea, unspecified; K76.9 Liver disease, unspecified; G40.909 Epilepsy, unspecified, not intractable, without status epilepticus; Z20.828 Contact with and (suspected) exposure to other viral communicable diseases; D75.89 Other specified diseases of blood and blood-forming organs; Z68.25 Body mass index [BMI] 25.0-25.9, adult; Z87.11 Personal history of peptic ulcer disease; Z87.01 Personal history of pneumonia (recurrent)
CPT/HCPCS: 36415; 36600; 38220; 70551; 71045; 71250; 74176; 76700; 80048; 80053; 80061; 80156; 80165; 80184; 80185; 80202; 80305; 80320; 81003; 82140; 82270; 82375; 82550; 82553; 82607; 82728; 82747; 82805; 82962; 83036; 83540; 83550; 83605; 83735; 83880; 84132; 84145; 84439; 84443; 84478; 84484; 85014; 85018; 85025; 85027; 85060; 85097; 86850; 86900; 86920; 86945; 87070; 87077; 87186; 88305; 88312; 88313; 92610; 93005; 93306; 93970; 94003; 94640; 97110; 97162; 97165; 97535; 99291; C9113; J0330; J0692; J1815; J1940; J1953; J1956; J2060; J2250; J2270; J2370; J2405; J2543; J2704; J2920; J3010; J3370; J3480; J3490; J7030; J7050; J7060; J7070; J7608; P9016; P9034; G0480; U0003-CS